=== PATIENT | female | born 1960 | race Caucasian/White ===

== ENCOUNTER 2021-02-21 14:46 | Emergency (ER) | payer OTHER ==
[~2021-02-21] VITALS: Ht 154.9 cm; Wt 67.1 kg
[~2021-02-21 14:46] MED LIST: AMOXICILLIN875 MG PO; ASPIRIN EC325 M1 PO; CIPROFLOXACIN500 M1 PO; CORTISPORIN OTI10 M2 OT; IBUPROFEN 800800 M1 PO; NAPROSYN500 MG PO; NORCO 5-325 TA1 EACH PO; PENICILLIN V P500 MG PO; PENICILLIN VK250 MG PO; PENICILLIN VK500 M1 PO; PENICILLIN VK500 MG PO; ZOFRAN4 MG PO; [UNRECOGNIZED DRUG - REMARK]
[2021-02-21] MEDS ORDERED: APAP W/CODEINE1 TA2 PO (15:00)
[2021-02-21] MEDS ORDERED: AMOXICILLIN 50500 MG PO (15:00)
[2021-02-21] MEDS ORDERED: LIDOCAINE VISC100 ML SWISH&SPIT (15:00)
[2021-02-21] MEDS ORDERED: PERIDEX 0.12%473 M1 SWISH&SPIT (15:00)
[2021-02-21 15:11] VITALS: BP 121/77
== END 2021-02-21 15:12 | disposition home or self-care (01) ==
LOC: M.ERS 14:46
DX: K08.89 Other specified disorders of teeth and supporting structures (principal); L53.9 Erythematous condition, unspecified; J44.9 Chronic obstructive pulmonary disease, unspecified; G89.29 Other chronic pain; Z88.5 Allergy status to narcotic agent; Z98.51 Tubal ligation status